=== PATIENT | male | born 1995 | race Caucasian/White ===

== ENCOUNTER 2017-01-06 08:20 | Emergency (ER) | payer BC, MEDICAID ==
[~2017-01-06] VITALS: Ht 160 cm; Wt 91.0 kg
[2017-01-06 08:24] VITALS: Ht 160 cm; Wt 91.0 kg
[2017-01-06] MEDS ORDERED: AMOX1TAB10 PO (08:56)
[2017-01-06] MEDS ORDERED: IBUP-1542 PO (08:56)
--- NOTE | 2017-01-06 09:08 | ERD ---
ER Documentation Chief Complaint Date/Time DATE: 01/06/17 TIME: 09:05 Chief Complaint SORE THROAT X 1 WEEK HPI This is a 21-year-old male that presents to the ER for sore throat for the last week. Patient states that he began to experience cold symptoms about a week ago and that her throat has gotten significantly worse. Last night patient noticed some swelling in his neck. Patient denies any fevers or chills. He denies any difficulty in breathing. He denies any difficulty in swallowing. His vaccines are up-to-date. ROS 12 point review of systems was done, all negative except per HPI. Medications Home Meds Active Scripts Ibuprofen* (Motrin*) 600 Mg Tab, 600 MG PO Q6, #30 TAB Prov:ROBERT ESCALONA 01/06/17 Amoxicillin/Potassium Clav (Amox-Clav 875-125 mg Tablet) 875-125 mg Tab, 1 TAB PO BID for 10 Days, #20 TAB Prov:ELIZ ESCALONAJAD Baires 01/06/17 Allergies Allergies: Coded Allergies: No Known Allergy (Unverified , 01/06/17) PMhx/Soc Medical and Surgical Hx: pt denies Medical Hx, pt denies Surgical Hx Hx Alcohol Use: No Hx Substance Use: No Hx Tobacco Use: No Smoking Status: Never smoker Physical Exam Vitals Vital Signs Date Time Temp Pulse Resp B/P Pulse Ox O2 Delivery O2 Flow Rate FiO2 01/06/17 08:24 98.8 117 18 133/71 98 Physical Exam GENERAL: The patient is well-developed, well-nourished, in no acute distress. NECK: Cervical spine is non tender with no step off. Supple, no nuchal rigidity HEENT: Atraumatic. Pupils equal, round and reactive to light. Extraocular muscles are grossly intact. Conjunctivae pink, no discharge. Bilateral tympanic membranes are clear with no evidence of erythema, effusion or dulling of the light reflex. Tonsilar erythema with no exudates or uvular deviation. Clear rhinorrhea. There is some swelling to the submandibular glands, there is no fullness to the bottom of the mouth. RESPIRATORY: Clear to auscultation bilaterally. There are no rales, wheezes or rhonchi. HEART: Regular rate and rhythm. No murmurs, clicks, rubs or gallops. NEUROLOGIC: Alert and oriented. SKIN: There is no rash. The skin is warm and dry. Procedures/MDM This is a 21-year-old male presents to the ER with a sore throat for the last week. Patient did have some tonsillar erythema however there is no exudates, uvular deviation or kissing tonsils. Patient did have some significant swelling of the submandibular glands. This patient was examined by myself and my supervising physician, Dr. Drake. Patient will be sent home with a course of Augmentin as he does have swelling of the submandibular glands. Suspicion for Maximilian angina is low as there is no fullness to the bottom of the mouth. Patient is afebrile and extremely well-appearing he does not have any difficulty in breathing, or stridor. Patient is to follow-up with his primary care doctor within 1-2 days or return to ER sooner if symptoms worsen. My medical decision making shared with the patient he understands and agrees with plan. Departure Diagnosis: Primary Impression: Pharyngitis Condition: Stable Patient Instructions: Self-Care for Sore Throats Referrals: NADYA ABARCA MD Additional Instructions: Call your primary care doctor TOMORROW for an appointment during the next 1-2 days.See the doctor sooner or return here if your condition worsens before your appointment time. ROBERT ESCALONA Jan 06, 2017 09:08
== END 2017-01-06 09:07 | disposition home or self-care (01) ==
LOC: FTE 08:20
DX: J02.9 Acute pharyngitis, unspecified (principal)
CPT/HCPCS: 99283